=== PATIENT | female | born 1950 | race Caucasian/White ===

== ENCOUNTER 2018-12-08 13:31 | Inpatient (IN) | payer OTHER ==
[2018-12-08] VITALS (17 sets, daily range): BP systolic 117–160; BP diastolic 63–98
[~2018-12-08] VITALS: Ht 167.6 cm; Wt 94.9 kg
[2018-12-08] MEDS ORDERED: PULMICORT0.5 MG/22 INH (14:54)
[2018-12-08] MEDS ORDERED: CEFUROXIME500 MG PO (14:55)
[2018-12-08] MEDS ORDERED: CALMOSEPTINE O3.5 GM TP (14:55)
[2018-12-08] MEDS ORDERED: COLACE100 MG PO (14:56)
[2018-12-08] MEDS ORDERED: CLARITIN10 MG PO (14:56)
[2018-12-08] MEDS ORDERED: COMBIGAN EYE DR10 ML OPHTHALMIC (14:58)
[2018-12-08] MEDS ORDERED: LASIX 20 MG TAB20 MG PO (14:58)
[2018-12-08] MEDS ORDERED: MOBIC15 MG PO (15:00)
[2018-12-08] MEDS ORDERED: LEVOTHYROXINE175 MCG PO (15:00)
[2018-12-08] MEDS ORDERED: UNICOMPLEX M TA1 TA1 PO (15:02)
[2018-12-08] MEDS ORDERED: MILK OF MA400 MG/5 M PO (15:02)
[2018-12-08] MEDS ORDERED: PREDNISONE 5 MG5 M1 PO (15:03)
[2018-12-08] MEDS ORDERED: KLOR-CON 1010 MEQ PO (15:03)
[2018-12-08] MEDS ORDERED: SENNA8.6 MG PO (15:04)
[2018-12-08] MEDS ORDERED: ZANTAC 150MG T150 MG PO (15:06)
[2018-12-08] MEDS ORDERED: TRAMADOL 50 MG50 MG PO (15:06)
[2018-12-08] MEDS ORDERED: SIMBRINZA 1%-0.28 ML (15:09)
[2018-12-08 16:25] LABS: BE(vivo) 14.3 mmol/L (-2 to +3); HCO3 44.7 mmol/L (22.0-26.0); sO2 89.7 % (92.0-98.0)
[2018-12-08 16:27] LABS: PCO2 88.8 mmHg (35.0-45.0)
[2018-12-08 16:40] LABS: HEMATOCRIT 42.1 % (37.0-47.0); HEMOGLOBIN 13.7 gm/dL (12.0-15.0); MCH 30.5 pg (26.0-34.0); MCHC 32.5 g/dL (28.0-37.0); MCV 93.9 fL (80.0-100.0); RBC 4.48 mil/uL (4.20-5.00); RDW 13.7 % (10.5-14.5)
[2018-12-08 16:56] LABS: CALCIUM 9.9 mg/dL (8.5-10.1); CREATININE 0.6 mg/dL (0.6-1.0); MAGNESIUM 2.5 mg/dL (1.8-2.4); POTASSIUM 4.4 mmol/L (3.5-5.1)
--- NOTE | 2018-12-08 17:34 | NUR ---
PATIENT DIRECT ADMIT FROM [facility], ALERT TO SELF ONLY. ON BIPAP. DR. GARCÍA AND DR. PECK NOTIFIED. FIELDS INSERTED, PATENT AND DRAINING.IV PATENT, FLUIDS INFUSING. DAUGHTER UPDATED ON THE PLAN OF CARE. MONITOR ABG LABWORK AND RESPIRATORY STATUS. NO SIGNS OF ACUTE DISTRESS NOTED AT THIS TIME. WILL CONTINUE TO MONITOR.
[2018-12-08 18:51] LABS: BE(vivo) 14.3 mmol/L (-2 to +3); PO2 143.7 mmHg (80.0-100.0); sO2 98.5 % (92.0-98.0)
[2018-12-08 18:53] LABS: PCO2 90.1 mmHg (35.0-45.0); pH 7.316 (7.360-7.450)
[2018-12-08 19:14] LABS: URINE BILIRUBIN NEGATIVE (Negative); URINE BLOOD TRACE (Negative); URINE CLARITY CLEAR; URINE COLOR YELLOW; URINE GLUCOSE-RANDOM* NEGATIVE (Negative); URINE KETONES 3+ (Negative); URINE LEUKOCYTES-REFLEX NEGATIVE (Negative); URINE NITRITE-REFLEX NEGATIVE (Negative); URINE PROTEIN (DIPSTICK) 2+ (Negative); URINE SPECIFIC GRAVITY 1.015 (1.005-1.035)
[2018-12-08 19:22] LABS: BACTERIA-REFLEX None Seen /HPF (None Seen); CASTS None Seen /LPF (None Seen); CRYSTALS None Seen /LPF (None Seen); SQUAMOUS None Seen /LPF (0-3); URINE RBC 0-2 Rare /HPF (0-2); URINE WBC-REFLEX 6-15 Few /HPF (0-5)
[2018-12-08 20:16] LABS: BE(vivo) 11.7 mmol/L (-2 to +3); HCO3 40.6 mmol/L (22.0-26.0); PCO2 74.5 mmHg (35.0-45.0); PO2 113.2 mmHg (80.0-100.0); pH 7.354 (7.360-7.450); sO2 97.8 % (92.0-98.0)
--- NOTE | 2018-12-08 23:08 | NUR ---
ASSUMED CARE @ 1900 12/08/18, PT ASSESSMENTS AND VSS COMPLETE PER ICU PROTOCOL. PT ONLY ALERT TO SELF (PER DAUGHTER REPORT), PT FOLLOWS COMMANDS INTERMITTENTLY. PT ON THE BIPAP, SEE PROCESS INTERVENTIONS FOR SPECIFIC SETTING, SATS IN THE HIGH 90'S. PT IN SR ON THE MONITOR. PT NPO, FIELDS IN PLACE. FALL PRECAUTIONS IN PLACE. PLAN OF CARE- CONT TO MONITOR. REPORT GIVEN TO YOUSIF.
[2018-12-09] VITALS (14 sets, daily range): BP systolic 111–152; BP diastolic 62–115
[2018-12-09 05:18] LABS: CALCIUM 9.7 mg/dL (8.5-10.1); CREATININE 0.5 mg/dL (0.6-1.0); MAGNESIUM 2.5 mg/dL (1.8-2.4); POTASSIUM 4.9 mmol/L (3.5-5.1)
--- NOTE | 2018-12-09 05:39 | NUR ---
PATIENT RESTING EASILY ON BIPAP DURING SHIFT. PATIENT ARRIVED 12/08 FROM [facility]. HX OF TRAMATIC BRAIN INJURY, DEMENTIA, COPD, LOW THYROID, METABOLIC ENCEPHALOPATHY, URINARY INCONTINENCE. ALERT TO SELF. HAD ONE FIVE BEAT RUN OF VTACH THEN RETURNED TO SINUS RHYTHM. ON BIPAP, NPO, FIELDS PATENT TO DEPENDENT DRAINAGE. ACCUCHECKS Q 6 HOURS, ON LOW SSI. NORMALLY WC BOUND AT [facility]. NO SKIN ISSUES, DENIED PAIN. PLAN OF CARE TO WEAN HER OFF BIPAP.
[2018-12-09 05:58] LABS: HEMATOCRIT 38.8 % (37.0-47.0); HEMOGLOBIN 12.5 gm/dL (12.0-15.0); MCH 30.3 pg (26.0-34.0); MCHC 32.3 g/dL (28.0-37.0); MCV 93.8 fL (80.0-100.0); RBC 4.14 mil/uL (4.20-5.00); RDW 13.6 % (10.5-14.5); WBC 3.5 thou/uL (4.0-11.0)
--- NOTE | 2018-12-09 11:31 | NUR ---
Assess due to low travis score. Admit to ICU with respiratory distress. Hx dementia, copd, TBI, from a nursing facility. Was NPO but new orders for diet to advance to regular. No wt hx available. BG mildly elevated, likely with steroids. No new recommendations at this time. Low nutrition risk
--- NOTE | 2018-12-09 13:23 | NUR ---
PATIENT ALERT TO SELF AND SITUATION, REORIENTED TO PLACE AND TIME. SINUS RHYTHM ON LACTATION NURSE. TOLERATING REGULAR BREAKFAST. FIELDS PATIENT AND DRAINING. PATIENT PLACED ON 6L NASAL CANNULA FROM BIPAP. O2 SATURATION MAINTAINING. FAMILY UPDATED ON THE PLAN OF CARE. REPORT GIVEN TO ONCOMING NURSE, PATIENT TRANSFERRED TO [facility].
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
--- NOTE | 2018-12-09 14:21 | NUR ---
DISCHARGE PLANNING. PATIENT RESID[facility] AT [facility]. PLAN IS FOR PATIENT TO RETURN TO [facility] ONCE MEDICALLY READY. CLINICAL INFORMATION FAXED TO [facility], VERIFIED RECEIVED. UNIT CM/SW AWARE. FOLLOWING TO ASSIST WITH DISCHARGE.
--- NOTE | 2018-12-09 19:19 | NUR ---
Assumed care of patient when transferred from ICU this morning. Patient is alert to self, sometimes place, otherwise confused. Able to follow commands and redirects easily. Vitals stable; SR on telemetry. Maintaining oxygen saturations on 6L high flow NC. Reports that breathing feels improved. To use Bipap at HS. Tolerating regular diet; fair appetite noted. Repositioning in bed every [address] hours[address] Fall precautions in place. Aldrich to JESSICA. Daughter, Lali, at bedside this afternoon for some time. Slowly progressing towards POC. Will continue to monitor.
[2018-12-10 04:10] VITALS: BP 152/92
--- NOTE | 2018-12-10 04:11 | NUR ---
ASSUMED CARE FROM DAY SHIFT PT ALERT TO SELF AND PLACE , BUT AFTER PT WAS PLACED ON BIPAP PT BECAME MORE CONFUSED SAT 98 % DENIES SOA PT PULLING MASK OFF AND PICKING AT IV AND FORGETTING THAT SHE HAS A FIELDS CATH IN, PT REOREINTED BUT XANZ PO GIVEN , THEN PT WAS ABLE TO REST SAT 98 % COLOR PINK VSS CARDIAAC MONITOR SHOWS NSR , WILL CONINTUE WITH CURRENT PLAN OF CARE, WILL REPORT CHANGES OR ABNORMAL FINDINGS.
[2018-12-10 05:05] LABS: CALCIUM 9.2 mg/dL (8.5-10.1); CREATININE 0.4 mg/dL (0.6-1.0); MAGNESIUM 2.3 mg/dL (1.8-2.4); POTASSIUM 4.4 mmol/L (3.5-5.1)
[2018-12-10 05:56] LABS: HEMATOCRIT 37.3 % (37.0-47.0); HEMOGLOBIN 12.2 gm/dL (12.0-15.0); MCH 30.2 pg (26.0-34.0); MCHC 32.8 g/dL (28.0-37.0); MCV 92.3 fL (80.0-100.0); RBC 4.04 mil/uL (4.20-5.00); RDW 13.3 % (10.5-14.5); WBC 4.4 thou/uL (4.0-11.0)
[2018-12-10 07:09] VITALS: BP 176/98
[2018-12-10 11:16] VITALS: BP 137/70
[2018-12-10 15:40] VITALS: BP 125/69
--- NOTE | 2018-12-10 17:07 | NUR ---
Assumed care of Pt at 0700. Pt alert and oriented x2 forgetful pleasantly confused, in no acute distress. hypertensive this AM - physician notified - meds given - bp showing improvement. breathing comfortably on 5-6L NC. refused PT. turned Q2H and PRN. sinus on telemetry. pt progressing toward poc goals.
[2018-12-10 19:40] VITALS: BP 118/66
[2018-12-11 03:40] VITALS: BP 122/60
[2018-12-11 04:22] LABS: HEMATOCRIT 38.7 % (37.0-47.0); HEMOGLOBIN 12.8 gm/dL (12.0-15.0); MCH 30.6 pg (26.0-34.0); MCHC 33.1 g/dL (28.0-37.0); MCV 92.4 fL (80.0-100.0); RBC 4.19 mil/uL (4.20-5.00); RDW 13.8 % (10.5-14.5); WBC 5.7 thou/uL (4.0-11.0)
[2018-12-11 04:31] LABS: CALCIUM 9.4 mg/dL (8.5-10.1); CREATININE 0.5 mg/dL (0.6-1.0); POTASSIUM 4.3 mmol/L (3.5-5.1)
--- NOTE | 2018-12-11 04:35 | NUR ---
Pt. is pleasantly confused. O2 at 4L at beginning of shift then BIPAP while asleep. She slept well during the night. Repositioned q2 hrs and prn for comfort. Bed alarm and SCD's on. Will continue to monitor.
[2018-12-11 07:27] VITALS: BP 147/74
[2018-12-11 11:09] VITALS: BP 131/67
--- NOTE | 2018-12-11 11:17 | NUR ---
care of pt assumed this am @ ~0700. pt noted to be resting quietly and comfortably in bed w/ bipap on and oximetry on. pt noted to be drowsy this am. pt taken off bipap by rt this am. pt awakened for breakfast this am and stood and pivoted (x2 max assist w/ gait belt) from bed to chair to eat. pt on o2 per nc. leija intact and functional at this time. pt co buttock pain, but denied the need for pain medication, she though the new position would help.
[2018-12-11 16:23] VITALS: BP 144/74
[2018-12-11 19:22] VITALS: BP 121/64
--- NOTE | 2018-12-12 00:26 | NUR ---
PT TRANSFERRED FROM CHAIR TO BED WITH GAIT BELT AND ASSIST X3 AND TOLERATED FAIR. LARGE BOWEL MOVEMENT AT THAT TIME. BIPAP IN PLACE. DENIES NEED FOR PAIN MEDICATION. RESTING COMFORTABLY. NO NEEDS VOICED. CALL LIGHT WITHIN REACH. WILL CONTINUE TO PROVIDE FREQUENT OBSERVATION.
[2018-12-12 03:53] VITALS: BP 145/82
[2018-12-12 06:12] LABS: HEMATOCRIT 40.3 % (37.0-47.0); HEMOGLOBIN 13.4 gm/dL (12.0-15.0); MCH 30.4 pg (26.0-34.0); MCHC 33.2 g/dL (28.0-37.0); MCV 91.7 fL (80.0-100.0); RBC 4.39 mil/uL (4.20-5.00); WBC 5.5 thou/uL (4.0-11.0)
[2018-12-12 06:23] LABS: CALCIUM 9.4 mg/dL (8.5-10.1); CREATININE 0.5 mg/dL (0.6-1.0); MAGNESIUM 2.1 mg/dL (1.8-2.4); POTASSIUM 4.4 mmol/L (3.5-5.1)
[2018-12-12 07:38] VITALS: BP 149/88
[2018-12-12 10:46] VITALS: BP 134/79
--- NOTE | 2018-12-12 11:34 | NUR ---
dp requested chart copy from Olivia/jessica traveling secretary. Patient likely to dc today to [facility] via stretcher. Nurse also said patient may need bipap or cpap, however pulmonary has not rounded yet.
[2018-12-12] MEDS ORDERED: IPRAT-ALBUT 0.5-3 ML INH (12:19)
[2018-12-12] MEDS ORDERED: MUCINEX600 MG PO (12:19)
[2018-12-12] MEDS ORDERED: PREDNISONE 20 M20 MG PO (12:19)
[2018-12-12] MEDS ORDERED: NOVOLOG100 UNIT/1 SUBQ (12:20)
--- NOTE | 2018-12-12 14:25 | NUR ---
EARNEST reviewed chart and spoke with nursing and attending physician. Pt is progressing towards goals for discharge. Pt ready for discharge today and will need bipap. EARNEST spoke with Anuj at [facility] regarding bipap. They wiil order bipap today and it will be delivered tomorrow. SW obtained bipap setting and script. Faxed to [facility]. Plan for pt to d/c back to [facility] tomorrow. EARNEST spoke with pt's dtr, Italia, via phone to provide update and notify of anticipated discharge for tomorrow. Italia is aware and agreeable with discharge plan. EARNEST updated nursing and attending physician. EARNEST is following to assist as needed with discharge planning.
[2018-12-12 16:03] VITALS: BP 137/74
--- NOTE | 2018-12-12 18:04 | NUR ---
ASSUMED PATIENT CARE AT 0715. A&OX1-2, FAMILY AT BEDSIDE TODAY. NO COMPLAINTS OF PAIN. Q2 TURNS. TRAY SET UP. ON ORAL STEROIDS. BIPAP HS. FACILITY UNABLE TO GET BIPAP UNTIL TOMORROW. PLANNING ON DC TOMORROW. GOALS MET FOR DC.
[2018-12-12 19:45] VITALS: BP 144/76
[2018-12-13 04:30] VITALS: BP 139/70
--- NOTE | 2018-12-13 06:17 | NUR ---
FOLLOWING POC FOR PT DC GOALS ARE BEING MET. DC IS EXPECTED TODAY. VSS AND PT STATES NO PAIN, NAUSEA, NOR VOMITING. WILL DC THE FIELDS BEFORE SHIFT CHANGE. HOURLY ROUNDING.
[2018-12-13 07:50] VITALS: BP 135/82
--- NOTE | 2018-12-13 10:31 | NUR ---
Patient will dc today to [facility]. DP called facility and they do have patient's bipap machine in today so patient will dc from hospital via [facility] ambulance. DP will work on transportation and discharge.
[2018-12-13 11:54] VITALS: BP 113/69
--- NOTE | 2018-12-13 13:53 | NUR ---
DISCHARGE NOTE: SW reviewed chart and spoke with nursing and attending physician. [facility] confirmed they have pt's bipap and can accept pt today. airport planner coordinated and notified family. Chart copy updated. Nursing to call report. No additional SW needs identified at this time, but is available to assist should needs arise.
[2018-12-13] MEDS ORDERED: PREDNISONE 20 M20 MG PO (14:36)
--- NOTE | 2018-12-13 15:07 | NUR ---
ASSUMED PATIENT CARE AT 0715. A&OX1-2. CLEARED FOR DC TODAY. REPORT CALLED TO [facility] [place]. PATIENT TRANSFERRED VIA [facility].
== END 2018-12-13 14:33 | DRG 189 ==
LOC: ICU 13:31 → 3W 12-09 11:25
PROVIDERS: Pediatrics; ADMIT Internal Medicine
PROC: 5A09357 Assistance with Respiratory Ventilation, Less than 24 Consecutive Hours, Continuous Positive Airway Pressure (ICD-10-PCS; principal; 2018-12-08)
PROC: 5A09357 Assistance with Respiratory Ventilation, Less than 24 Consecutive Hours, Continuous Positive Airway Pressure (ICD-10-PCS; 2018-12-09)
PROC: 5A09357 Assistance with Respiratory Ventilation, Less than 24 Consecutive Hours, Continuous Positive Airway Pressure (ICD-10-PCS; 2018-12-10)
PROC: 5A09357 Assistance with Respiratory Ventilation, Less than 24 Consecutive Hours, Continuous Positive Airway Pressure (ICD-10-PCS; 2018-12-11)
PROC: 5A09357 Assistance with Respiratory Ventilation, Less than 24 Consecutive Hours, Continuous Positive Airway Pressure (ICD-10-PCS; 2018-12-12)
PROC: 5A09357 Assistance with Respiratory Ventilation, Less than 24 Consecutive Hours, Continuous Positive Airway Pressure (ICD-10-PCS; 2018-12-13)
DX: J96.02 Acute respiratory failure with hypercapnia (principal); G93.40 Encephalopathy, unspecified; J44.1 Chronic obstructive pulmonary disease with (acute) exacerbation; E87.0 Hyperosmolality and hypernatremia; J96.01 Acute respiratory failure with hypoxia; E03.9 Hypothyroidism, unspecified; F03.90 Unspecified dementia, unspecified severity, without behavioral disturbance, psychotic disturbance, mood disturbance, and anxiety; Z87.820 Personal history of traumatic brain injury; Z85.850 Personal history of malignant neoplasm of thyroid
CPT/HCPCS: 10078; 10879